=== PATIENT | male | born 1985 | race Caucasian/White ===

== ENCOUNTER 2017-05-23 04:10 | Emergency (ER) | payer SELFPAY ==
[~2017-05-23] VITALS: Ht 177.8 cm; Wt 70.8 kg
[2017-05-23 04:13] VITALS: TEMP 36.3; Ht 177.8 cm; Wt 70.8 kg
[2017-05-23] MEDS ORDERED: AMOXICILLIN 250 MG CAP PO STA (04:24)
[2017-05-23] MEDS ORDERED: AMOX500C3 PO ×2 (04:27→20:07)
[2017-05-23] MEDS ORDERED: OXYCODONE IR HOME PACK PO ONE (04:30)
[2017-05-23 04:32] VITALS: BP 115/79; PULSE 74; O2SAT 99
--- NOTE | 2017-05-23 04:33 | EMERGENCY ROOM VISIT NOTE ---
History First contact with patient: 04:15 Chief Complaint: DENTAL PAIN Stated Complaint: TERRIBLE TOOTH ACHE Nursing Triage Summary: c/o bottom left tooth ache since yesterday. hx broken tooth. History of Present Illness The patient is a 32 year old male who presents to the Emergency Room with complaints of dental pain for the past day who has not seen a dentist in quite some time. Patient has a broken tooth. He has tried oral gel and tea bags with no improvement of symptoms. Patient denies fever, facial swelling, sore throat, dysphagia, headache, neck stiffness, abdominal pain, vomiting, diarrhea , cold symptoms. He is tolerate by mouth fluids and food. Review of Systems See HPI for pertinent positives & negatives. A total of 10 systems reviewed and were otherwise negative. Past Medical/Surgical History None Social History Smoking Status: Current Every Day Smoker Drug Use: none Marital Status: in relationship Housing Status: lives with significant other Occupation Status: employed Current/Historical Medications Scheduled Amoxicillin (Amoxil), 500 MG PO TID Physical Exam Vital Signs Date Time Temp Pulse Resp B/P (MAP) Pulse Ox O2 Delivery O2 Flow Rate FiO2 05/23/17 04:13 36.3 75 20 119/76 96 Room Air Physical Exam VITALS: Vitals are noted on the nurse's note and reviewed by myself. Vital signs stable. GENERAL: Pleasant male, in no acute distress, nondiaphoretic, well-developed well-nourished. SKIN: The skin was without rashes, erythema, edema, or bruising. There is no tenting of the skin. Capillary reflex less than 2 seconds. HEAD: Normocephalic atraumatic. EARS: External auditory canals clear, tympanic membranes pearly luna without erythema or effusion bilaterally. EYES: Pupils equal round and reactive to light and accommodation. Conjunctivae without injection, sclerae without icterus. Extraocular movements intact. NOSE: Patent, turbinates without inflammation or discharge. No sinus tenderness. MOUTH: Mucous membranes moist. Pharynx without erythema or exudate. Uvula midline. Airway patent. Tongue does not deviate. No Yovani's angina Dental exam: Left lower molar with extensive dental decay with no palpable abscess. Overall dental hygiene fair with plaque buildup. NECK: Supple without nuchal rigidity. No lymphadenopathy. No thyromegaly. Cervical spine is nontender. No JVD. No meningeal signs HEART: Regular rate and rhythm without murmurs gallops or rubs. LUNGS: Clear to auscultation bilaterally without wheezes, rales or rhonchi. No dullness to percussion. No retractions or accessory muscle use. ABDOMEN: Positive bowel sounds x 4. Normal tympanic percussion. Soft, nontender, without masses or organomegaly. Ndiaye sign negative. No guarding or rebound tenderness. MUSCULOSKELETAL: No muscle atrophy, erythema, or edema noted. NEURO: Patient was alert and oriented to person place and time. Normal sensation to light and sharp touch. No focal neurological deficits. Medical Decision & Procedures ED Course Prior records reviewed and summarized as above. Triage Nursing notes reviewed. Additional history obtained from family. The patient's history was concerning for dental pain. Differential diagnosis: Etiologies such as cellulitis, abscess, gingivitis, Yovani angina, as well as others were entertained.. Physical examination: The physical examination was consistent with dental pain and dental caries ER treatment provided: Amoxicillin, home pack of OxyIR On reassessment the patient felt better. Diagnostics interpreted by me: Deferred This appears to be isolated dental pain and dental caries. Patient had no signs of abscess. No signs of Yovani angina. He is well-appearing. He is counseled on proper dental hygiene and verbalized understanding of this. He is advised to see dentist as soon as possible for definitive care or here in the ER sooner for facial swelling, fevers, worsening signs or symptoms or as needed. By the evaluation outlined above emergent etiologies such as abscess, Yovani angina, as well as others were deemed relatively unlikely. The pt informed about the findings as listed above. All questions were answered and pleased with the treatment. Return instructions were outlined and the patient was discharged in stable condition. Outpatient prescription management: Amoxil Referral: The patient was referred to dentist for follow-up in 2 to 3 days for a recheck of the current condition. Medical Decision As above [place] Drug Monitoring Program Search Results: patient reviewed within database, no issues identified Medication Reconcilliation Current Medication List: was personally reviewed by me Blood Pressure Screening Patient's blood pressure: Normal blood pressure Impression Primary Impression: Dental caries Additional Impression: Tooth pain with chewing Departure Information Dispostion Home / Self-Care Condition GOOD Prescriptions Amoxicillin (AMOXIL) 500 Mg Cap 500 MG PO TID for 10 Days, #30 CAP Prov: Nona Garzon ., WALT 05/23/17 Referrals No Doctor, Assigned (PCP) Forms HOME CARE DOCUMENTATION FORM, IMPORTANT VISIT INFORMATION Patient Instructions My [facility], [facility] Additional Instructions Amoxicillin 500mg: Take one pill 3 times daily for 10 days for your infection. All antibiotics can cause diarrhea. If this occurs and you feel worse or it does not resolve in 1-2 days follow up with your doctor or return to the Emergency Department as this could be signs of serious underlying problems. Any medication can cause an allergic reaction, stop the pills immediately and return to the ER for rash, hives, breathing difficulties, or swelling. Oxycodone (OxyIR) 5mg: Take 1-2 pills every four hours for breakthrough pain. Avoid alcohol, operating machinery or dangerous equipment, working on ladders or roofs, DRIVING, or situations where being under the influence may be dangerous. It is recommended to use an giog-blf-nqrntde stool softener such as Colace, 100mg twice daily while taking this medication to avoid constipation. Ibuprofen(Motrin, Advil) may be used for fever or pain. Use 600mg every six hours as needed. Take with food. Avoid using more than 2400mg in a 24 hour period. Do not use 2400mg per day for more than three consecutive days without physician direction. Prolonged inappropriate use can lead to stomach upset or ulcers. This medication can be taken if you need to drive, work, or perform activities which may be dangerous when taking narcotic pain medication. (AND/OR) Acetaminophen(Tylenol) may be used for fever or pain. Use 1000mg every six hours as needed. Avoid using more than 3000mg in a 24 hour period. This medication can be taken if you need to drive, work, or perform activities which may be dangerous when taking narcotic pain medication. Surprise teeth twice a day, floss daily and do warm saltwater gargles 3 times a day. See a dentist as soon as possible for definitive care for your dental problem. Return to ER sooner for facial swelling, fever, redness, worsening signs or symptoms or as needed. Problem Qualifiers
[2017-05-23] MEDS ORDERED: IBUP-1050 PO (20:07)
[2017-05-23] MEDS ORDERED: OXYC1TAB3 PO (20:07)
== END 2017-05-23 04:36 | disposition home or self-care (01) ==
LOC: C.EDB 04:11
DX: K08.89 Other specified disorders of teeth and supporting structures (principal); K02.9 Dental caries, unspecified; F17.210 Nicotine dependence, cigarettes, uncomplicated

== ENCOUNTER 2017-05-23 19:53 | Emergency (ER) | payer SELFPAY ==
[~2017-05-23] VITALS: Ht 177.8 cm; Wt 71.0 kg
[~2017-05-23 19:53] MED LIST: AMOX500C3 PO
[2017-05-23 19:55] VITALS: BP 133/92; PULSE 73; TEMP 36.8; O2SAT 100; Ht 177.8 cm; Wt 71.0 kg
[2017-05-23] MEDS ORDERED: IBUP-1050 PO (20:07)
[2017-05-23] MEDS ORDERED: OXYC1TAB3 PO (20:07)
[2017-05-23] MEDS ORDERED: AMOX500C3 PO (20:07)
[2017-05-23] MEDS ORDERED: KETOROLAC TROMETHAMINE 60 MG/2 ML VIAL IM STA (20:20)
[2017-05-23] MEDS ORDERED: MoRPHine SULFATE 10 MG/ML CARP/VIAL IM STA (20:20)
[2017-05-23] MEDS ORDERED: OXYCODONE IR HOME PACK PO ONE (20:30)
[2017-05-23] MEDS ORDERED: MoRPHine SULFATE 2 MG/ML CARP ONE (20:32)
[2017-05-23] MEDS ORDERED: MoRPHine SULFATE 4 MG/ML 1 ML CARP\\VIAL ONE (20:32)
--- NOTE | 2017-05-23 20:48 | EMERGENCY ROOM VISIT NOTE ---
ED Visit Note First contact with patient: 19:59 CHIEF COMPLAINT: Dental pain HISTORY OF PRESENT ILLNESS: This 32-year-old male patient presented to the emergency department ambulatory complaining of severe dental pain. The patient states that he has a broken off left lower molar. He has had mild intermittent pain for a few weeks, but this worsened 2 days ago. He was seen in the emergency department early this morning for the pain and given a home pack of Percocet and prescribed penicillin. He states that the pain has been unbearable at home. He rates his discomfort a 10/10. He states the pain is very sharp and radiates into his face. He has been taking the Percocet prescribed as well as ibuprofen without relief. He does have a dentist appointment scheduled for tomorrow afternoon. He denies any facial swelling or drainage from the mouth. He denies any fevers/chills. REVIEW OF SYSTEMS: A 6 system review of systems was completed with positives and pertinent negatives listed in the HPI. ALLERGIES: Levaquin, shellfish MEDICATIONS: No chronic medications PMH: No significant past medical history. SOCIAL HISTORY: The patient lives locally with family. PHYSICAL EXAM: Vitals are noted on the nurse's note and reviewed by myself. Vital signs stable. Temperature 36.8C orally. GENERAL: This is a 32-year-old male, in no acute distress, nondiaphoretic, well-developed well-nourished. Mouth: The left second bicuspid tooth is very carious and the gum is swollen and tender around it, without any discharge or signs of an abscess. The remainder of the pharynx and tonsils are without erythema, edema, or exudate. The airway is patent. There is no facial swelling, cervical or submandibular lymphadenopathy. The patient appears uncomfortable and in pain. The patient has overall poor dental hygiene. EARS: External auditory canals clear, tympanic membranes pearly luna without erythema or effusion bilaterally. ED COURSE: The patient was evaluated as above. There is no significant facial swelling. There is no evidence of Yovani angina. The patient is already taking an antibiotic and pain medication at home. He does appear to be in significant pain. He was given injections of morphine and Toradol and an additional home pack of OxyIR. He will follow-up with the dentist as scheduled tomorrow. He was given dental wax to place over the tooth. DIAGNOSIS: Dental pain Current/Historical Medications Scheduled Amoxicillin (Amoxil), 500 MG PO TID Scheduled PRN Ibuprofen (Advil), 200-600 MG PO Q4H PRN for Pain Oxycodone Immediate Rel Tab (Roxicodone Ir), Unknown Dose PO Q4H PRN for Severe Pain Allergies Coded Allergies: Levofloxacin (Verified Allergy, Unknown, rash, 05/23/17) Shellfish (Verified Allergy, Unknown, anaphylaxis, 05/23/17) Vital Signs Date Time Temp Pulse Resp B/P (MAP) Pulse Ox O2 Delivery O2 Flow Rate FiO2 05/23/17 19:55 36.8 73 16 133/92 100 Room Air Medications Administered Medications (Trade) Dose Ordered Sig/Bruno Route Start Time Stop Time Status Last Admin Dose Admin Ketorolac Tromethamine (Toradol Inj) 60 mg NOW STAT IM 05/23/17 20:20 05/23/17 20:23 DC 05/23/17 20:37 60 MG Oxycodone HCl (Roxicodone Immediate Rel 5MG Home Pack) 1 homepack UD ONCE PO 05/23/17 20:30 05/23/17 20:31 DC 05/23/17 20:37 1 HOMEPACK Morphine Sulfate (MoRPHine SULFATE INJ) 2 mg STK-MED ONCE .ROUTE 05/23/17 20:32 05/23/17 20:33 DC 05/23/17 20:39 2 MG Morphine Sulfate (MoRPHine SULFATE INJ) 4 mg STK-MED ONCE .ROUTE 05/23/17 20:32 05/23/17 20:33 DC 05/23/17 20:38 4 MG Departure Information Impression Primary Impression: Pain, dental Dispostion Home / Self-Care Condition GOOD Referrals No Doctor, Assigned (PCP) Patient Instructions My [facility] Additional Instructions You have been treated in the Emergency Department for Dental Pain. You have received pain medicine in the emergency department which impairs your ability to operate a vehicle. It is illegal for you to drive after receiving these medicines. You have been prescribed OxyIR to be used for pain control. This is a narcotic medication. You cannot drive or consume alcohol while on this medicine. This medicine should only be used for pain that cannot be controlled with over-the- counter pain medicines. Penicillin as previously prescribed. For pain control, you can use the following zyln-otm-dhtbxnx medicines (if >12 yo): - Regular strength (325mg/tab) Tylenol (acetaminophen) 2 tabs every 4-6 hours as needed. Do not exceed 12 tablets in a 24 hour period. Avoid taking more than 4 grams (4000 mg) of Tylenol per day. This includes any other sources of acetaminophen you may take on a regular basis. - Regular strength (200 mg/tab) Advil (ibuprofen) 1-2 tabs every 4-6 hours as needed. Do not exceed a dose of 3200 mg per day. Refrain from smoking cigarettes or using chewing tobacco until you have been evaluated by your dentist. Keeping beverages lukewarm and consuming soft foods can decrease your pain. Warm compresses over the affected area may offer some relief. Follow-up with your dentist tomorrow as scheduled. Return to the emergency department if you develop the following symptoms despite treatment course outlined above: fever, intractable pain, increased redness, swelling, or purulent discharge.
== END 2017-05-23 21:04 | disposition home or self-care (01) ==
LOC: C.EDB 19:54 → C.EDD 21:04
DX: K08.89 Other specified disorders of teeth and supporting structures (principal); S02.5XXA Fracture of tooth (traumatic), initial encounter for closed fracture; X58.XXXA Exposure to other specified factors, initial encounter